=== PATIENT | female | born 1945 | race Caucasian/White ===

== ENCOUNTER → 2018-05-26 | Outpatient (CLI) | payer OTHER ==
--- NOTE | 2018-05-28 13:22 | EKG ---
[place] [address] [facility] [place] [address] ELECTROCARDIOGRAM REPORT Name: CHIN SANON Room #: REG ANGEL Long#: [id number] ������������������ Admission: 05/26/18 ������������������ Attend Phys: Amirah Sherman MD Discharge: ������������������ Date of : 45 Report #: [id number] ����������������������������������������������������������������� [id number] THIS REPORT FOR: //name// [facility] Test Date: 2018-05-26 Test Time: 17:04:53 Pat Name: CHIN SANON Department: Room: Gender: F Lending Consultant: Melissa MCADAMS : 1945 Requested By: Amirah Sherman Order Number: [id number] MD: Song Jones Measurements Intervals [place] Rate: 66 P: 81 W[place]: 155 QRS: -53 QRSD: 93 T: 38 QT: 405 QTc: 425 Interpretive Statements Sinus rhythm Left anterior fascicular block No previous ECG available for comparison Electronically Signed On 05-28-2018 13:22:25 CDT by Song Jones [email or web address] ��������������������������������������������� <ELECTRONICALLY SIGNED> ���������������������������������������� By: Song Jones MD, [facility] ��������������������������������������������� 05/28/18 1322 1704 1704 Song Jones MD, FACC /EPI
== END ==
LOC: CV 16:11
DX: Z01.818 Encounter for other preprocedural examination (principal); I44.4 Left anterior fascicular block